=== PATIENT | female | born 1970 | race Caucasian/White ===

== ENCOUNTER 2017-03-21 09:40 | Day surgery (SDC) | payer OTHER ==
[2017-03-21] VITALS (16 sets, daily range): BP systolic 107–129; BP diastolic 50–75; PULSE 58–76; RESP 13–20; Ht 147.3 cm; Wt 55.8 kg
[~2017-03-21] VITALS: Ht 147.3 cm; Wt 55.8 kg
[~2017-03-21 09:40] MED LIST: CEFAZOLIN 2 GM/50 ML (PMX) 50 ML IVPB SCH; CEFAZOLIN SODIUM 2GM/D5W 50 X1 IVPB ONE; ROPIVACAINE 0.5 % 30 ML VIAL ONE; SOD CHLORIDE 0.9% 1,000 ML IV ONE
[2017-03-21] MEDS ORDERED: METF500T4 PO (10:25)
[2017-03-21] MEDS ORDERED: FISH1CAP PO (10:26)
[2017-03-21] MEDS ORDERED: ROCURONIUM 50 MG INJ ONE (12:24)
[2017-03-21] MEDS ORDERED: FENTAnyl 50 MCG/ML VIAL ONE (12:24)
[2017-03-21] MEDS ORDERED: PROPOFOL 20 ML ONE (12:24)
[2017-03-21] MEDS ORDERED: MIDAZOLAM 1 MG/ML 2 ML INJ ONE (12:24)
[2017-03-21] MEDS ORDERED: CEFAZOLIN 1 GM INJ ONE (12:24)
--- NOTE | 2017-03-21 13:06 | HPN ---
Date/Time of Note Date/Time of Note DATE: 03/21/17 TIME: 13:05 Interval H&P Admission Note Pt. seen H&P reviewed: No system changes ROSY MARTINEZ MD March 21, 2017 13:06
[2017-03-21] MEDS ORDERED: LACTATED RINGER'S 1,000 ML IV SCH (13:33)
[2017-03-21] MEDS ORDERED: DEXAMETHASONE 4 MG/ML 1 ML INJ ONE (13:49)
[2017-03-21] MEDS ORDERED: METOCLOPRAMIDE 10 MG INJ ONE (13:49)
[2017-03-21] MEDS ORDERED: ONDANSETRON 4 MG INJ ONE (13:49)
[2017-03-21] MEDS ORDERED: morphine (1 MG/ML) 10ML SYRINGE IV PRN ×3 (14:00)
[2017-03-21] MEDS ORDERED: EPHEDrine SULFATE 50 MG/5 ML SYG IV PRN (14:00)
[2017-03-21] MEDS ORDERED: HYDROmorphONE (0.2 MG/ML) 10ML SYG IV PRN ×3 (14:00)
[2017-03-21] MEDS ORDERED: ONDANSETRON 4 MG INJ IV PRN ×3 (14:00→14:30)
[2017-03-21] MEDS ORDERED: METOCLOPRAMIDE 10 MG INJ IV PRN (14:00)
[2017-03-21] MEDS ORDERED: LABETALOL HCL 20MG INJ IV PRN (14:00)
[2017-03-21] MEDS ORDERED: DIPHENHYDRAMINE 50 MG INJ IV PRN ×2 (14:00)
[2017-03-21] MEDS ORDERED: HYDROCODONE/APAP (10/325) TAB PO PRN (14:00)
[2017-03-21] MEDS ORDERED: BUPIVACAINE LIPOSOME/PF 266 MG/20 ML VIAL INFIL SCH (14:00)
[2017-03-21] MEDS ORDERED: CEFAZOLIN 2 GM/50 ML (PMX) 50 ML IVPB SCH (14:00)
[2017-03-21] MEDS ORDERED: MEPERIDINE 25 MG INJ IV PRN (14:00)
[2017-03-21] MEDS ORDERED: OXYCODONE/ACETAMINOPHEN (5/325) TAB PO PRN ×3 (14:00→14:30)
[2017-03-21] MEDS ORDERED: ACETAMINOPHEN 325 MG TAB PO PRN (14:00)
[2017-03-21] MEDS ORDERED: hydrALAzine 20 MG INJ IV PRN (14:00)
--- NOTE | 2017-03-21 14:17 | PN ---
Date/Time of Note Date/Time of Note DATE: 03/21/17 TIME: 14:15 Assessment/Plan Lines/Catheters IV C[facility]ter Type (from [facility]): Saline Lock Assessment/Plan Assessment/Plan During the mastectomy, it was difficult to determine the extent of the tumor due to scar tissue from prior procedures. There is suspicion for nipple involvement and need for additional excision. Therefore, reconstruction will be deferred until a different time when we have permanent margins available. I discussed this with the patient's , and he is in agreement Exam/Review of Systems Vital Signs Vitals Vital Signs Date Time Temp Pulse Resp B/P Pulse Ox O2 Delivery O2 Flow Rate FiO2 03/21/17 11:26 98.4 67 16 118/75 98 Room Air ROSY MARTINEZ MD March 21, 2017 14:17
[2017-03-21] MEDS ORDERED: morphine 2 MG INJ IV PRN (14:30)
[2017-03-21] MEDS ORDERED: HYDROCODONE/APAP (5/325) TAB PO PRN (14:30)
--- NOTE | 2017-03-21 14:48 | OPR ---
DATE OF OPERATION: 03/21/2017 SURGEON: Osvaldo Galo MD PREOPERATIVE DIAGNOSIS: Malignant phyllodes tumor. POSTOPERATIVE DIAGNOSIS: Malignant phyllodes tumor. OPERATION PERFORMED: Left simple mastectomy. ANESTHESIA: General. ANESTHESIOLOGIST: ____ INDICATIONS FOR PROCEDURE: The patient underwent excision of a breast mass many months ago at an [facility] institution. Pathology was positive for malignant phyllodes tumor and the margins were involv ed. It is unclear why she did not have reexcision of her mastectomy sooner. Eventually she present ed to Dr. Galo. She was evaluated and also discussed at tumor board. The recommendation was for s imple mastectomy. She requested nipple-sparing and saw Dr. Scar Zamorano of [facility] for immediate reconstruction; however, the intraoperative findings were highly suspicious for nipple involvement. Therefore, Dr. Zamorano did not perform his portion of the operation. Dr. Galo proceeded with left simple mastectomy. DESCRIPTION OF PROCEDURE: The patient was brought to the operating theater, placed under general en dotracheal tube anesthesia. Then the left breast and axillary region were prepped and draped in the usual sterile fashion. Previous surgical incisional scar which was in the upper outer quadrant was reincised with a 15-blade scalpel. Subcutaneous tissue was dissected with cautery. Skin edges wer e then elevated with skin hooks and skin flaps were created first laterally to the border of the debbie ast and then anteriorly; however, upon creating the skin flap anteriorly, it became highly suspiciou s that the subareolar tissue was involved with tumor, but dissection continued medially and inferior ly until the skin flap was elevated off of the entire specimen. The specimen was then transected, o riented, and sent for permanent pathologic analysis. Additional tissue was resected from the subare olar location for a final anterior margin and sent separately for pathologic analysis. The wound wa s then irrigated. Minimal bleeding was controlled with cautery. A #10 flat Jose-Donovan drain was brought through the left mid axillary line, cut to size, laid over the pectoralis major muscle. It was secured in place with a 2-0 nylon suture, and the skin was then reapproximated with 4-0 Vicryl suture in subcuticular fashion. The patient tolerated the procedure well. ESTIMATED BLOOD LOSS: 30 mL. COMPLICATIONS: There were no complications. DISPOSITION: The patient was transported to the recovery room in stable condition where a circumfer ential compression dressing was placed. Dictated By: OSVALDO MCKENZIE/MICHAELA Conf#: [id number] DID#: [id number]
== END 2017-03-21 17:05 | disposition home or self-care (01) ==
LOC: SDS 09:40
PROVIDERS: ATTEND Surgery Surgical Oncology
DX: D24.2 Benign neoplasm of left breast (principal); N60.22 Fibroadenosis of left breast; E78.5 Hyperlipidemia, unspecified; E11.9 Type 2 diabetes mellitus without complications
CPT/HCPCS: 19303; 82962; 84703; 88304; 88307; J0690; J1100; J2250; J2405; J2765; J3010; Z7512; Z7610; J2795

== ENCOUNTER 2017-05-03 12:59 | Inpatient (IN) | payer OTHER ==
[2017-05-02 13:32] VITALS: BMI 25.3
[~2017-05-03] VITALS: Ht 147.3 cm; Wt 55.0 kg
[2017-05-03] VITALS (14 sets, daily range): BP systolic 114–149; BP diastolic 63–78; PULSE 52–75; RESP 17–27; Ht 147.3 cm; Wt 55.0 kg
[~2017-05-03 12:59] MED LIST changes: -CEFAZOLIN 2 GM/50 ML (PMX) 50 ML IVPB SCH; -CEFAZOLIN SODIUM 2GM/D5W 50 X1 IVPB ONE; +FISH1CAP PO; +METF500T4 PO; -ROPIVACAINE 0.5 % 30 ML VIAL ONE; -SOD CHLORIDE 0.9% 1,000 ML IV ONE
[2017-05-03] MEDS ORDERED: CEFAZOLIN 2 GM/50 ML (PMX) 50 ML IVPB ONE (14:30)
[2017-05-03] MEDS ORDERED: SOD CHLORIDE 0.9% 1,000 ML IV SCH (14:30)
[2017-05-03 14:43] LABS: ADD SCAN DIFF NO
[2017-05-03 14:45] LABS: BASOPHILS % 0.4 % (0.0-2.0); EOSINOPHILS # 0.2 10^3/ul (0.0-0.5); EOSINOPHILS % 3.7 % (0.0-7.0); HEMOGLOBIN 14.1 g/dl (12.0-16.0); LYMPHOCYTES # 2.4 10^3/ul (0.8-2.9); LYMPHOCYTES % 48.3 % (15.0-51.0); MEAN CORPUSCULAR HEMOGLOBIN 30.4 pg (29.0-33.0); MEAN CORPUSCULAR HGB CONC 36.2 g/dl (32.0-37.0); MEAN CORPUSCULAR VOLUME 84.1 fl (82.0-101.0); MEAN PLATELET VOLUME 11.8 fl (7.4-10.4); MONOCYTE # 0.4 10^3/ul (0.3-0.9); MONOCYTES % 7.9 % (0.0-11.0); NEUTROPHILS % 39.5 % (39.0-77.0); PLATELET COUNT 228 10^3/UL (140-415); RED BLOOD COUNT 4.64 10^6/ul (4.20-5.40); RED CELL DISTRIBUTION WIDTH 13.1 % (11.5-14.5); WHITE BLOOD COUNT 4.9 10^3/ul (4.8-10.8)
[2017-05-03 15:02] LABS: INR 0.97; PROTIME 12.9 Sec (12.2-14.2)
[2017-05-03 15:03] LABS: PARTIAL THROMBOPLASTIN TIME 31.5 Sec (25.0-35.0)
[2017-05-03 15:05] LABS: ALBUMIN 4.8 g/dl (3.3-4.9); ALBUMIN/GLOBULIN RATIO 1.71; BILIRUBIN,INDIRECT 0.9 mg/dl (0-1.1); BILIRUBIN,TOTAL 0.9 mg/dl (0.2-1.3); TOTAL PROTEIN 7.6 g/dl (6.1-8.1)
[2017-05-03 15:14] LABS: CALCIUM 9.4 mg/dl (8.4-10.2); CREATININE 0.62 mg/dl (0.44-1.00); POTASSIUM 3.8 mmol/L (3.5-5.1)
[2017-05-03] MEDS ORDERED: FENTAnyl 50 MCG/ML VIAL ONE (15:33)
[2017-05-03] MEDS ORDERED: LIDOCAINE 2% (SDV) 5 ML INJ ONE (15:59)
[2017-05-03] MEDS ORDERED: ROCURONIUM 50 MG INJ ONE (15:59)
[2017-05-03] MEDS ORDERED: NEOSTIGMINE 3 MG/3 ML SYRINGE ONE (16:00)
[2017-05-03] MEDS ORDERED: ACETAMINOPHEN 1000MG/100ML IV 100 ML IVPB PRN (16:00)
[2017-05-03] MEDS ORDERED: CEFAZOLIN 1 GM INJ ONE (16:00)
[2017-05-03] MEDS ORDERED: SUCCINYLCHOLINE CHLORIDE 100 MG/5 ML SYG IV ONE (16:00)
[2017-05-03] MEDS ORDERED: morphine 2 MG INJ IV PRN (16:00)
[2017-05-03] MEDS ORDERED: GLYCOPYRROLATE 0.4 MG INJ ONE (16:00)
[2017-05-03] MEDS ORDERED: ONDANSETRON 4 MG INJ IV PRN ×2 (16:00→16:30)
[2017-05-03] MEDS ORDERED: PROPOFOL 20 ML ONE (16:00)
[2017-05-03] MEDS ORDERED: DIPHENHYDRAMINE 50 MG INJ IV PRN (16:30)
[2017-05-03] MEDS ORDERED: MEPERIDINE 25 MG INJ IV PRN (16:30)
[2017-05-03] MEDS ORDERED: HYDROmorphONE (0.2 MG/ML) 10ML SYG IV PRN ×3 (16:30)
[2017-05-03] MEDS ORDERED: FENTAnyl 50 MCG/ML VIAL IV PRN (16:30)
--- NOTE | 2017-05-03 17:24 | OPR ---
DATE OF OPERATION: 05/03/2017 PREOPERATIVE DIAGNOSIS: Malignant phyllodes tumor, left breast. POSTOPERATIVE DIAGNOSIS: Malignant phyllodes tumor, left breast. OPERATION PERFORMED: 1. Left modified radical mastectomy. 2. Local tissue advancement transfer closure. ANESTHESIA: General. ANESTHESIOLOGIST: RAN ELKINS MD. SURGEON: Osvaldo Galo MD ENGINEERING DRAWINGS CHECKER: Tom Guzmán MD INDICATIONS FOR PROCEDURE: The patient is a 47-year-old female status who was previously operated o n at an outside institution for large breast mass which on pathological analysis was determined to b e a malignant phyllodes tumor with inadequate margins. She was seen by Dr. Galo. Dr. Galo discus sed the need for either mastectomy or reexcision. She elected to undergo reexcision. However, the final pathology of that reexcision was again malignant phyllodes tumor with inadequate margins. The refore, the patient was counseled as to need for mastectomy. She consented and was scheduled for peralta rgery. DESCRIPTION OF PROCEDURE: The patient was brought to the operating theater, placed under general en dotracheal tube anesthesia. The left breast and axillary region was prepped and draped in usual indigo rile fashion. A planned elliptical incision was demarcated with marking pen around the nipple areol ar complex including the skin associated with the previous surgical incision. The incision was liu ied out with 15 blade scalpel. Subcutaneous tissue was dissected with cautery. Allis-Rutledge skin cl amps were then utilized to elevate the skin edges and using cautery, skin flaps were developed first superiorly to the clavicle, medially to the sternal border, inferiorly to the inframammary fold and laterally until the latissimus dorsi muscle was identified throughout its course. The mastectomy t ook place from medial to lateral using cautery. The border of the pectoralis major muscle and pecto ralis minor muscle was identified. Clavipectoral fascia was incised. A small amount of level 1 tis alyce was also resected and the specimen was then transected, oriented, and sent for permanent patholo gic analysis. The wound was irrigated. Minimal bleeding was controlled with cautery. Two #10 Fren ch Jose-Donovan drains were then brought through the left mid axillary line, one was cut to size an d laid within the axilla, the other was cut to size and laid over the pectoralis major muscle. Both drains were secured in place with 2-0 nylon suture in the standard fashion. The skin edges were th en attempted to bring together where there were very significant tension. Therefore, additional ski n flap creation took place both inferiorly and superiorly. With adequate mobilization of the skin , the areas were approximated and held together with towel clamp and multiple 4-0 Vicryl sutures wer e then placed in deep dermal fashion. Final skin approximation took place with skin maribell. The p atient tolerated procedure well. Estimated blood loss was 30 mL. There were no complications and t he patient was transported in stable condition to the recovery room. Dictated By: OSVALDO MCKENZIE/MICHAELA Conf#: [id number] DID#: [id number]
[2017-05-03] MEDS ORDERED: GLUCOSE GEL 15 GRAM TUBE BUCCAL PRN (18:30)
[2017-05-03] MEDS ORDERED: GLUCAGON 1 MG INJ IM PRN (18:30)
[2017-05-03] MEDS ORDERED: GLUCOSE GEL 15 GRAM TUBE PO PRN ×2 (18:30)
[2017-05-03] MEDS ORDERED: DEXTROSE 50% 50 ML SYRINGE IV PRN ×2 (18:30)
[2017-05-03] MEDS: D5W-0.45 NACL + KCL 20 MEQ 1,000 ML IV SCH (18:36)
[2017-05-03] MEDS: INSULIN ASPART [NOVOLOG] 3 ML PEN SC SCH (21:00)
[2017-05-03] MEDS: metFORMIN 500 MG TAB PO SCH ×2 (21:47→22:14)
[2017-05-03] MEDS: HYDROCODONE/APAP (5/325) TAB PO PRN (23:18)
[2017-05-04] MEDS ORDERED: ACCU-CHEK XX SCH (02:00)
[2017-05-04] MEDS: D5W-0.45 NACL + KCL 20 MEQ 1,000 ML IV SCH ×3 (02:39→15:42)
--- NOTE | 2017-05-04 06:50 | HP ---
DATE OF ADMISSION: 05/03/2017 CHIEF COMPLAINT AND HISTORY OF PRESENT ILLNESS: The patient is a 47-year-old female with a history of previous surgery on large left breast mass, and pathology came back as malignant phyllodes tumor with inadequate margin. The patient was seen by Dr. Galo as an outpatient. The patient underwent re-excision on 03/21/2017. However, the patient had inadequate margins. Therefore, the patient was brought into hospital again today for left modified radical mastectomy and local tissue advancement transfer closure. The patient's postoperative pain is being controlled with IV Dilaudid. The dominique ent denied any shortness of breath. No recent fever or chills. No history of vomiting. No resting pain in lower extremities. The patient does not have any focal weakness. PAST ____ HISTORY: As stated above. ALLERGIES: NONE. SOCIAL HISTORY: No smoking, no alcohol. PAST MEDICAL HISTORY: Positive for mild diabetes for which patient is on metformin. PHYSICAL EXAMINATION: GENERAL: The patient is conscious, awake, alert. VITAL SIGNS: Temperature 97.3, pulse 55, respirations 17, blood pressure 138/71, O2 saturation 98% on room air. HEENT: Conjunctivae and lids normal. Oropharynx clear. NECK: Supple. No mass, no thyromegaly. CHEST: Fairly clear. CARDIOVASCULAR: S1, S2 normal. No murmur. ABDOMEN: Soft, nondistended, nontender. EXTREMITIES: No leg edema. Pedal pulses palpable. SKIN: Without acute rash. NEUROLOGIC: The patient is awake, alert, follows simple commands. LABORATORY DATA: Sodium 139, potassium 3.8, BUN 11, creatinine 0.6, glucose 156, AST 69, ALT 78. W BC 4.9, hemoglobin 14.1. IMPRESSION: 1. Malignant phyllodes tumor, left breast, status post left modified radical mastectomy and local t issue advancement transfer closure. 2. Type 2 diabetes mellitus. PLAN: The patient admitted on medical floor. The patient will be started on diabetic diet and will put her on sliding scale insulin, will resume Glucophage tomorrow. Pain will be controlled with Ty lenol, Lesage and IV morphine. Will use SCD for DVT prophylaxis. Further recommendation depends on patient's hospital course. Dictated By: MARYANN BACA/MICHAELA Conf#: [id number] [facility]#: [id number]
[2017-05-04 07:14] VITALS: BP 107/64; RESP 20
[2017-05-04] MEDS: HYDROCODONE/APAP (5/325) TAB PO PRN ×2 (07:16→17:10)
[2017-05-04] MEDS ORDERED: metFORMIN 500 MG TAB PO SCH (07:50)
[2017-05-04 08:44] VITALS: BP 103/59; PULSE 83; RESP 20
[2017-05-04] MEDS: metFORMIN 500 MG TAB PO SCH (08:53)
[2017-05-04] MEDS: INSULIN ASPART [NOVOLOG] 3 ML PEN SC SCH ×2 (08:53→12:43)
--- NOTE | 2017-05-04 12:20 | PN ---
DATE: 05/04/2017 Postop day #1. Status post left modified radical mastectomy with axillary . SUBJECTIVE: No new complaints. OBJECTIVE: VITAL SIGNS: Temperature 98.4, heart rate 83, respiratory rate 20, blood pressure 103/59, saturatio n 98% on room air. Jose-Donovan drain has drained 50 mL of serosanguineous fluid since operation u ntil 5 or 6 o'clock in the morning today. The patient has walked, out of bed, and started a diet. PLAN: The patient can be discharged home with pain medication. Follow up with Dr. Galo. The dominique ent to call Dr. Galo' office today or on Sunday to make an appointment for followup. Meanwhile, patient is going to be instructed by the nurses how to take care of the Jose-Donovan drain and ho w to record the drainage every day. Dictated By: YUNI PAZ/MICHAELA Conf#: [id number] DID#: [id number]
[2017-05-04] MEDS ORDERED: HYDR-3498 PO (16:47)
--- NOTE | 2017-05-05 14:05 | DS ---
DATE OF ADMISSION: 05/03/2017 DATE OF DISCHARGE: 05/04/2017 FINAL DIAGNOSES: 1. Malignant phyllodes tumor of the left breast, status post left modified radical mastectomy and l ocal tissue advancement transfer closure. 2. Diabetes mellitus type 2. BRIEF HISTORY: The patient is a 47-year-old female with previous surgery in the left breast for lef t breast mass. Pathology came back positive for malignant phyllodes tumor with inadequate margin pe r excision in March of this year. The patient was evaluated by Dr. Galo and was brought to the [facility] and underwent left modified radical mastectomy and local tissue advancement transfer closure by Dr. Galo. Postoperatively, the patient had pain which is being controlled with IV Dilaudid and the patient was admitted for further evaluation and management. HOSPITAL COURSE: The patient was given Tylenol and morphine for pain and Zofran p.r.n. for nausea. The patient was also given NovoLog for blood sugar control. The patient's condition gradually impr vadim, although patient had refused insulin and was taking her home medication metformin. The patien t's pain was better controlled and the patient was discharged home. CONDITION ON DISCHARGE: Hemodynamically stable. ACTIVITY: As patient tolerates. DIET: 1800 ADA diet. DISCHARGE MEDICATIONS: The patient was given a prescription for [place] p.r.n. for pain. The patient is to continue her home medications of metformin and fish oil. FOLLOWUP: The patient was instructed to follow up with Dr. Galo in postoperative appointment next week. Interdisciplinary plan of care was established for this patient. Plan of care was discussed with Dr Zeus Suresh. Dictated By: ELVIA PATIÑO [employer] for MARYANN SURESH MD, SR/NTS Conf#: [id number] DID#: [id number]
== END 2017-05-04 17:20 | disposition home or self-care (01) | DRG 583 ==
LOC: REC 12:59 → EDSTATUS 16:30 → MS1 18:11
PROVIDERS: ADMIT Surgery Surgical Oncology; ATTEND Surgery Surgical Oncology
PROC: 0HTU0ZZ Resection of Left Breast, Open Approach (ICD-10-PCS; principal; 2017-05-03 16:30)
DX: C50.912 Malignant neoplasm of unspecified site of left female breast (principal); E11.9 Type 2 diabetes mellitus without complications; Z79.4 Long term (current) use of insulin
CPT/HCPCS: 80053; 82962; 85025; 85610; 85730; 88309; J0690; J1170; J1815; J2175; J2405; J2710; J3010; J3480; J7999